=== PATIENT | male | born 1980 | race Caucasian/White ===

== ENCOUNTER 2021-11-09 08:06 | Outpatient (CLI) | payer OTHER, SELFPAY ==
[2021-11-09 08:23] LABS: Basophils Absolute Auto 0.04 K/mm3 (0.00-0.10); Basophils Percent Auto 0.5 % (0.0-1.0); Eosinophils Absolute Auto 0.16 K/mm3 (0.02-0.50); Eosinophils Percent Auto 2.2 % (1.0-6.0); Hematocrit 49.6 % (40.0-54.0); Hemoglobin 16.6 g/dL (14.0-18.0); Immature Granulocyte Absolute 0.03 K/mm3 (0.00-0.00); Immature Granulocyte Percent A 0.4 % (0.0-0.0); Lymphocytes Absolute Auto 2.14 K/mm3 (1.10-4.50); Lymphocytes Percent Auto 28.8 % (18.0-42.0); Mean Corpuscular HGB Conc 33.5 g/dL (32.0-36.0); Mean Corpuscular Hemoglobin 29.1 pg (27.0-31.0); Mean Platelet Volume 9.9 fl (8.7-11.0); Monocytes Absolute Auto 0.53 K/mm3 (0.10-0.90); Monocytes Percent Auto 7.1 % (2.0-11.0); Neutrophils Absolute Auto 4.5 K/mm3 (1.7-7.2); Platelet Count Result 192 K/mm3 (150-420); Red Cell Distribution Width 12.6 % (11.6-14.4); White Blood Count 7.4 K/mm3 (4.8-10.8)
[2021-11-09 08:40] LABS: Hemoglobin A1C 5.5 % (<5.7)
[2021-11-09 08:56] LABS: Alanine Aminotransferase 48 U/L (16-63); Albumin Level 3.9 g/dL (3.4-5.0); Alkaline Phosphatase 131 U/L (46-116); Anion Gap 10 mmol/L (8-16); Aspartate Amino Transferase < 10 U/L (15-37); Bilirubin,Total 0.4 mg/dL (0.00-1.00); Blood Urea Nitrogen 16 mg/dL (7-18); Calcium 9.2 mg/dL (8.5-10.1); Carbon Dioxide 25 mmol/L (21-32); Chloride 106 mmol/L (98-108); Cholesterol 159 mg/dL (0-200); Estimated Glomerular Filt Rate > 60; Free T4 Free Thyroxine 0.83 ng/dL (0.76-1.46); Glucose 108 mg/dL (70-99); HDL Direct 32 mg/dL (40-60); LDL Cholesterol Calculated 63 mg/dL (<130); Osmolality Calculated 294 mOsm/kg (285-295); Potassium 4.2 mmol/L (3.5-5.1); Prostate Specific Antigen 2.6 ng/mL (< OR = 4.0); Sodium 141 mmol/L (136-145); Thyroid Stimulating Hormone 4.41 uIU/mL (0.36-3.74); Total Protein 7.3 g/dL (6.4-8.2); Triglycerides 321 mg/dL (0-150)
== END 2021-11-09 08:07 | disposition home or self-care (01) ==
LOC: CHSLAB 08:10
PROVIDERS: PCP Physician Assistant; Visit Provider Physician Assistant
DX: Z00.00 Encounter for general adult medical examination without abnormal findings (principal); Z13.220 Encounter for screening for lipoid disorders; Z13.1 Encounter for screening for diabetes mellitus; Z12.5 Encounter for screening for malignant neoplasm of prostate; R82.90 Unspecified abnormal findings in urine
CPT/HCPCS: 36415; 80053; 80061; 83036; 84153; 84439; 84443; 85025; 87077; 87086; 87088; 87186; G0103

== ENCOUNTER 2021-12-30 00:23 | Day surgery (SDC) | payer OTHER, SELFPAY ==
[2021-12-23 15:39] VITALS: BMI 30.4
--- NOTE | 2021-12-23 15:43 | PC.NURSE ---
Report to the Outpatient Waiting Room, entrance under the green pavilion located off [facility], at time 1030 on date 12/30/21. Planned Procedure Time: 1230. Time changes happen often and if your time is changed the preop area will call you the afternoon before. - You and your visitor will be asked to self-screen and do not enter if you have any COVID symptoms. - We encourage only one visitor and NO visitors under age 16 are allowed at this time. Your visitor will receive communication by the phone number that is given day of service. - The patient visitor is requested to social distance or may leave the building when not with patient due to restrictions. - A mask is OPTIONAL within the hospital. Patients may have clear liquids (water, carbonated beverages, clear teas, apple juice) until 3 hours prior to surgery with a maximum of 20 ounces. - No food from midnight until time of surgery Take the following medications with a SIP of water the morning of surgery: LEVOTHYROXINE Medications to discontinue per physician: N/A Date to take last dose: N/A Please no make-up, nail austrian, hairspray, perfume, deodorant, or body powder the day of surgery. No jewelry (including any body piercings) or valuables the day of surgery, leave them at home. Please take a shower or bath the night before, or the morning of, surgery with an antibacterial soap. Wear comfortable, loose fitting clothing. - Jewelry must be removed prior to entering the operating room. Rings and piercings that are not removed may be cut off. - The hospital will not accept responsibility for valuables. - Please leave all valuables, including medications, at home the day of surgery. If you are going home after surgery, a licensed hole digger truck driver must drive you home. - NO public transportation without another adult. - We recommend that an adult stay with you for 24 hours following discharge. - We also recommend that you do not drive, make important decision, drink alcoholic beverages, or take any drugs that were not prescribed by your health care provider for at least 24 hours after your discharge time. Follow any additional instructions given to you from your surgeon. If you or anyone in your household have experienced Covid symptoms in the past week, please notify your surgeon or the nurse liaison at the phone number below for possible testing. Telephone instructions given to PT - DANNIELLE PEREIRA and asked if any additional questions and then verbalized understanding. Patient advised to call surgeon office or pre surgery nurse liaison [phone] if any additional questions.
[2021-12-30 10:06] VITALS: BP 141/103; PULSE 80; RESP 16; TEMP 36.8; O2SAT 98
[2021-12-30] MEDS: LACTATED RINGERS 1,000 ML 30 ML IV CONT (10:30)
--- NOTE | 2021-12-30 10:43 | P.PNAN_ITS ---
Anes - Initial Pre Proc Eval Procedure: Operation Date: 12/30/21 12:30 Proposed Procedures p Excision Skin Cyst Right Shoulder - Boyd Grover MD Date/Time: 12/30/21 10:43 Surgeon: Boyd Grover MD Pre Op Diagnosis: Skin Cyst Right Shoulder Patient Data Age: 41 Gender: M Height: 1.93 m Weight: 113.2 kg Last Vital Signs Temp 36.8 C 12/30/21 10:06 Pulse 80 12/30/21 10:06 Resp 16 12/30/21 10:06 BP 141/103 H 12/30/21 10:06 Pulse Ox 98 12/30/21 10:06 O2 Del Method Room Air 12/30/21 10:06 Allergies Allergy/AdvReac Type Severity Reaction Status Date / Time No Known Allergies Allergy Verified 12/30/21 10:05 Home Medications Medication Instructions Recorded Confirmed Type levothyroxine 75 mcg tablet 75 mcg PO DAILY 12/23/21 12/23/21 History Patient hx anesthesia problems: none Family hx anesthesia problems: none Results Review: All pre-operative results and documents have been reviewed as part of the pre- operative evaluation. [facility] Past Medical History Medical History (Updated 12/30/21 @ 10:47 by Mikey Moser MD) Hypothyroidism Kidney stones Surgical History Surgical History H/O cystoscopy History of urethral stricture urethroplasty in 2020 Family History Family History Mother Diabetes mellitus Social History Social History Smoking status: Former smoker Tobacco type: cigarettes Additional smoking assessment comments: ONLY IN ' Alcohol intake: current Drinks per week: 3 Alcohol use details: social Substance use: never Substance use type: does not use Living arrangements: with family Additional occupation/education comments: Shipping/Receiving Spiritual care concerns: No Anes - Eval Final PreProcedure Day of Procedure 12/30/21 10:43 Patient weight: obese Heart: regular rate and rhythm Lungs: clear to auscultation Airway: Mallampati scale class 1 Neurological: alert and oriented Last oral intake: >/= 8 hours ASA classification: II Emergent: no Anesthetic plan: proceed Anesthesia type and monitoring: general GIVS and standard monitoring Results Review: All pre-operative results and documents have been reviewed as part of the pre- operative evaluation. Informed Consent: The patient's anesthetic plan and its attendant risks and benefits were discussed with the patient/family/POA. Questions were solicited and answers provided to the satisfaction of the patient/family/POA.
--- NOTE | 2021-12-30 12:05 | WPDHPUPDATE1 ---
History and Physical Update Update Date/Time: 12/30/21 12:05 History and Physical has been reviewed, including an updated exam of the patient. There are NO changes in the patient's condition. Risks, benefits, and alternatives have been discussed and questions answered. Patient agrees to proceed with procedure.
[2021-12-30] MEDS: ceFAZolin 2 GM/D5W 50 ML 2 GM/50 ML BAG IVPB (12:07)
[2021-12-30 12:50] VITALS: BP 125/78; PULSE 89; RESP 14; O2SAT 95
--- NOTE | 2021-12-30 13:09 | P.OP_ITS ---
Procedure Note - Detailed Date of Procedure 12/30/21 Pre-op Diagnosis Skin Cyst Right Shoulder Post-op Diagnosis Same Procedure Performed Excision 3 cm inclusion cyst right shoulder with no margin, 8 cm layered closure. Surgeon Boyd Grover MD Neck Band Maker Niya Fountain [facility] Anesthesia MAC and Local (0.25% Marcaine with epinephrine) Indications Patient presented with a tender red and subcutaneous mass on the right shoulder just anterior to the latissimus. He had some oral antibiotics and this improved. It still slightly fluctuant and tender. He is taken to surgery now for excision. Findings Inclusion cyst, no purulent fluid noted Description of Procedure Patient was checked in the preoperative holding area. He was taken to surgery and anesthesia was introduced. The right shoulder was prepped and draped. An ellipse was drawn around the cyst in the coronal dimension. Local anesthetic was infiltrated into the skin and subcutaneous all around the cyst. I measured the ellipse and it was 8 cm in length. A then made the incision and carefully dissected the skin and subcutaneous from the cyst. On the lateral aspect of the cyst, the cyst did rupture and spill a small amount of whitish fluid and cyst content. No purulent fluid was noted. This was suctioned away and controlled quickly. I then continued sharp dissection and excision of the cyst with the overlying skin. The cyst did extend down to the muscular layer. The cyst was excised and then measured. It was 3 cm in its longest dimension. I then used cautery to achieve hemostasis. Some additional local was placed. Subcutaneous interrupted suture of 4-0 Vicryl were then placed. Some subcuticular interrupted 4-0 Vicryl skin sutures were placed. Finally the skin was closed with running 4-0 Monocryl skin suture. The wound was dressed with Exofin surgical adhesive. The patient was awakened and taken to outpatient in good condition. Sponge and needle counts were correct x2. Estimated Blood Loss -5 Drains No Packing No Pathology Yes (Skin cyst of the shoulder) Complications No immediate complications Condition Stable Disposition Same day [facility] Billing Surgery - Charge Forward: Surgery Billing (Excision 3 cm skin cyst right shoulder with no margin, 8 cm layered closure.)
[2021-12-30 13:20] VITALS: BP 139/98; PULSE 75; RESP 16
== END 2021-12-30 13:39 | disposition home or self-care (01) ==
PROVIDERS: PCP Physician Assistant; Visit Provider Surgery
PROC: (CPT 11403; principal; 2021-12-30 12:30)
DX: L72.0 Epidermal cyst (principal); E03.9 Hypothyroidism, unspecified; Z87.891 Personal history of nicotine dependence; E66.9 Obesity, unspecified; Z68.30 Body mass index [BMI] 30.0-30.9, adult
CPT/HCPCS: 11403; 12034; 88305; J0690; J2250; J2704; J3010; J7120

== ENCOUNTER 2022-03-10 15:45 | Outpatient (CLI) | payer OTHER, SELFPAY ==
[2022-03-10 16:43] LABS: Free T4 Free Thyroxine 1.11 ng/dL (0.76-1.46); Thyroid Stimulating Hormone 1.28 uIU/mL (0.36-3.74)
== END 2022-03-10 15:46 | disposition home or self-care (01) ==
LOC: CHSLAB 15:48
PROVIDERS: PCP Physician Assistant; Visit Provider Physician Assistant
DX: E03.9 Hypothyroidism, unspecified (principal)
CPT/HCPCS: 36415; 84439; 84443